=== PATIENT | male | born 1955 | race Caucasian/White ===

== ENCOUNTER 2019-03-02 07:58 | Inpatient (IN) | payer BC, MEDICARE ==
[~2019-03-02] VITALS: Ht 182.9 cm; Wt 99.3 kg
--- NOTE | 2019-03-02 08:31 | NUR ---
PT IS OOT ATTENDING THE COLLEGE FOR 10 DAYS POOR SLEEPING LAST NOC DIZZY THIS AM DROVE TO THE COLLEGE DIZZYNESS INCREASED AND HE FELL WHEN HE GOT OUT OF THE CAR RE WEAKNESS PT AO4 AT THIS TIME COMPLETE EROM
[2019-03-02 08:58] LABS: BASOPHILS % (AUTO) 0 % (0-1); EOSINOPHILS # (AUTO) 0.11 x10^3/uL (0-0.4); EOSINOPHILS % (AUTO) 2 % (1-7); LYMPHOCYTES # (AUTO) 1.15 x10^3/uL (1-3.4); LYMPHOCYTES % (AUTO) 17 % (22-44); MD NO; MEAN CORPUSCULAR HEMOGLOBIN 31.8 pg (27.5-34.5); MEAN CORPUSCULAR HGB CONC 33.6 g/dL (33.2-36.2); MEAN CORPUSCULAR VOLUME 94.7 fL (81-97); MEAN PLATELET VOLUME 8.4 fL (7.4-10.4); MONOCYTES # (AUTO) 0.48 x10^3/uL (0.2-0.8); MONOCYTES % (AUTO) 7 % (2-9); NEUTROPHILS % (AUTO) 75 % (42-75); PLATELET COUNT 294 x10^3/uL (130-400); RED BLOOD COUNT 4.04 x10^6/uL (4.38-5.82)
[2019-03-02] MEDS ORDERED: NITROGLYCERIN SINGLE TAB 0.4 MG SL PRN (09:00)
[2019-03-02] MEDS ORDERED: SODIUM CHLORIDE FLUSH 10ML SYR IVF ONE (09:00)
[2019-03-02] MEDS ORDERED: MORPHINE SULFATE 4 MG/ML, 1ML IVPush PRN (09:00)
[2019-03-02] MEDS ORDERED: MECLIZINE CHEWABLE 25 MG TAB PO ONE (09:00)
[2019-03-02] MEDS ORDERED: ASPIRIN 325 MG TABLET PO ONE (09:00)
[2019-03-02 09:08] LABS: INTERNATIONAL NORMALIZED RATIO 1.32 (0.93-1.1); PROTHROMBIN TIME 13.7 Seconds (9.6-11.5)
[2019-03-02 09:10] LABS: ALANINE AMINOTRANSFERASE 77 U/L (12-78); ALBUMIN 4.1 g/dL (3.4-5.0); ANION GAP 12 mmol/L (5-15); CHLORIDE 100 mmol/L (98-107); CREATININE 1.06 mg/dL (0.7-1.3)
[2019-03-02 09:15] LABS: ALKALINE PHOSPHATASE 99 U/L (45-117); BILIRUBIN,TOTAL 0.5 mg/dL (0.2-1.0); TOTAL PROTEIN 8.2 g/dL (6.4-8.2); TROPONIN I < 0.015 ng/mL (0.000-0.045)
[2019-03-02 09:22] LABS: CALCIUM 5.5 mg/dL (8.5-10.1)
[2019-03-02] MEDS ORDERED: ASPIRIN 325 MG TABLET ONE (09:23)
[2019-03-02] MEDS ORDERED: MECLIZINE CHEWABLE 25 MG TAB ONE (09:24)
[2019-03-02] MEDS ORDERED: CALCIUM GLUCONATE 9.2 MEQ in SODIUM CHLORIDE 0.9% 100 ML IV ONE (10:00)
--- NOTE | 2019-03-02 10:52 | NUR ---
REPORT FROM CASSI IBARRA, ASSUME CARE OF PT AT THIS TIME.
[2019-03-02] MEDS ORDERED: HYDR-3240 PO (11:18)
[2019-03-02] MEDS ORDERED: DIAZ5TAB4 PO (11:18)
[2019-03-02] MEDS ORDERED: CLON-275 PO (11:18)
[2019-03-02] MEDS ORDERED: CARV12.52 PO (11:18)
[2019-03-02] MEDS ORDERED: ATOR40TA78 PO (11:18)
[2019-03-02] MEDS ORDERED: LEVO50TA5 PO (11:18)
[2019-03-02] MEDS ORDERED: OMEP-110 PO (11:18)
[2019-03-02] MEDS ORDERED: HYDR12.517 PO (11:18)
[2019-03-02] MEDS ORDERED: LOSA50TA14 PO (11:18)
[2019-03-02] MEDS ORDERED: FURO-92 PO (11:18)
[2019-03-02] MEDS ORDERED: GABA300C10 PO (11:18)
--- NOTE | 2019-03-02 11:40 | NUR ---
PT UPDATED ON POC, REPOSITIONED ON SUKHWINDER. PT STATES HE'S CARRYING A LARGE AMOUNT OF MONEY-SECURITY CALLED TO LOCK UP VALUABLES.
[2019-03-02] MEDS ORDERED: POTASSIUM CHLORIDE 40 MEQ in SODIUM CHLORIDE 0.9% 500 ML IV ONE ×2 (13:00→19:00)
--- NOTE | 2019-03-02 13:14 | NUR ---
ATTEMPT TO CALL REPORT, RN UNAVAILABLE BUT WILL CALL BACK.
--- NOTE | 2019-03-02 13:21 | NUR ---
REPORT TO JANEL IBARRA, PT READY FOR TRANSPORT.
[2019-03-02 14:01] VITALS: BP 136/80
[2019-03-02] MEDS ORDERED: PROMETHAZINE 25 MG/ML, 1ML IM PRN (14:30)
[2019-03-02] MEDS ORDERED: ONDANSETRON ODT 4 MG PO PRN (14:30)
[2019-03-02] MEDS ORDERED: hydrALAzine 20 MG/ML, 1ML IVPush PRN (14:30)
[2019-03-02] MEDS ORDERED: POLYETHYLENE GLYCOL 17 GM PACKET PO PRN (14:30)
[2019-03-02] MEDS ORDERED: MAGNESIUM SULFATE PMX 2GM/50ML 50 ML IV ONE ×2 (14:30)
[2019-03-02] MEDS ORDERED: DOCUSATE 100 MG CAPSULE PO PRN (14:30)
[2019-03-02] MEDS ORDERED: morphine SULFATE 10 MG/ML, 1ML IVPush PRN (14:30)
[2019-03-02] MEDS ORDERED: ACETAMINOPHEN 325 MG TABLET PO PRN (14:30)
[2019-03-02] MEDS ORDERED: ONDANSETRON 2MG/ML, 2ML IVPush PRN (14:30)
[2019-03-02] MEDS ORDERED: BISACODYL 10 MG SUPP PR PRN (14:30)
[2019-03-02] MEDS ORDERED: CALCIUM GLUCONATE 4.6 MEQ in SODIUM CHLORIDE 0.9% 50 ML IV ONE (15:00)
[2019-03-02 15:17] LABS: FREE T4 (FREE THYROXINE) 1.54 ng/dL (0.76-1.46); THYROID STIMULATING HORMONE 1.5 mIU/L (0.358-3.740)
[2019-03-02] MEDS ORDERED: MAGNESIUM SULFATE PMX 4GM/100M 100 ML IVPB ONE (15:30)
[2019-03-02] MEDS ORDERED: TEMPLATE NON-FORMULARY MED. (Clonidine Hcl** (Clonidine Hcl Er**) 0.1 MG) PO SCH (16:00)
[2019-03-02] MEDS ORDERED: GABAPENTIN 300 MG CAPSULE PO SCH (16:00)
[2019-03-02] MEDS: HEPARIN 5,000 UNITS/ML, 1ML SQ SCH (17:50)
[2019-03-02] MEDS: CALCIUM CARBONATE 500 MG TABLET PO SCH ×2 (17:50→22:08)
[2019-03-02] MEDS: OMEPRAZOLE 20 MG CAPSULE.DR PO SCH (17:50)
[2019-03-02] MEDS: OXYcodone IR 5MG TABLET PO PRN ×2 (17:55→22:09)
[2019-03-02] MEDS: SODIUM CHLORIDE 0.9% 1,000 ML IV SCH (18:02)
[2019-03-02 20:00] VITALS: BP 151/78
[2019-03-02 20:10] LABS: ANION GAP 10 mmol/L (5-15); CHLORIDE 106 mmol/L (98-107); CREATININE 1.07 mg/dL (0.7-1.3)
[2019-03-02 20:21] LABS: CALCIUM 5.2 mg/dL (8.5-10.1)
[2019-03-02] MEDS ORDERED: ATORVASTATIN 40 MG TABLET PO SCH (21:00)
[2019-03-02 21:25] LABS: MICROSCOPIC NOT IND
[2019-03-02 21:27] LABS: CULTURE INDICATED? NO
[2019-03-02] MEDS: GABAPENTIN 300 MG CAPSULE PO SCH (22:07)
[2019-03-02] MEDS: CARVEDILOL 6.25 MG TABLET PO SCH (22:08)
[2019-03-03] MEDS: HEPARIN 5,000 UNITS/ML, 1ML SQ SCH ×2 (01:46→11:11)
[2019-03-03 02:00] VITALS: BP 138/74
[2019-03-03 02:00] LABS: BASOPHILS # (AUTO) 0.02 x10^3/uL (0-0.1); BASOPHILS % (AUTO) 1 % (0-1); EOSINOPHILS # (AUTO) 0.11 x10^3/uL (0-0.4); EOSINOPHILS % (AUTO) 2 % (1-7); LYMPHOCYTES # (AUTO) 1.38 x10^3/uL (1-3.4); LYMPHOCYTES % (AUTO) 29 % (22-44); MD NO; MEAN CORPUSCULAR HEMOGLOBIN 32.1 pg (27.5-34.5); MEAN CORPUSCULAR HGB CONC 33.5 g/dL (33.2-36.2); MEAN CORPUSCULAR VOLUME 95.8 fL (81-97); MEAN PLATELET VOLUME 8.4 fL (7.4-10.4); MONOCYTES # (AUTO) 0.45 x10^3/uL (0.2-0.8); MONOCYTES % (AUTO) 9 % (2-9); NEUTROPHILS # (AUTO) 2.85 x10^3/uL (1.8-6.8); NEUTROPHILS % (AUTO) 59 % (42-75); PLATELET COUNT 273 x10^3/uL (130-400); RED BLOOD COUNT 3.58 x10^6/uL (4.38-5.82); RED CELL DISTRIBUTION WIDTH 13.3 % (9.4-14.8)
[2019-03-03 02:08] LABS: ALANINE AMINOTRANSFERASE 61 U/L (12-78); ALBUMIN 3.4 g/dL (3.4-5.0); ANION GAP 12 mmol/L (5-15); CHLORIDE 107 mmol/L (98-107); CREATININE 0.89 mg/dL (0.7-1.3)
[2019-03-03 02:10] LABS: ALKALINE PHOSPHATASE 88 U/L (45-117); BILIRUBIN,TOTAL 0.6 mg/dL (0.2-1.0); TOTAL PROTEIN 6.9 g/dL (6.4-8.2)
[2019-03-03 02:19] LABS: CALCIUM 5.5 mg/dL (8.5-10.1)
[2019-03-03] MEDS ORDERED: MAGNESIUM SULFATE PMX 2GM/50ML 50 ML IV ONE (04:30)
[2019-03-03] MEDS ORDERED: LEVOTHYROXINE 50 MCG TABLET PO SCH (06:00)
[2019-03-03 07:15] LABS: ALANINE AMINOTRANSFERASE 61 U/L (12-78); ALBUMIN 3.3 g/dL (3.4-5.0); ANION GAP 12 mmol/L (5-15); CHLORIDE 106 mmol/L (98-107); CREATININE 0.74 mg/dL (0.7-1.3)
[2019-03-03 07:17] LABS: CALCIUM 5.6 mg/dL (8.5-10.1)
[2019-03-03 07:19] LABS: ALKALINE PHOSPHATASE 91 U/L (45-117); BILIRUBIN,TOTAL 0.8 mg/dL (0.2-1.0); CHOLESTEROL, TOTAL 115 mg/dL (140-239); HDL CHOL % 25 % (26-37); HDL CHOLESTEROL (DIRECT) 29 mg/dL (40-60); LDL CHOLESTEROL,CALCULATED 70 mg/dL (54-169); LDL/HDL RATIO 2.4 (0.5-3.0); TRIGLYCERIDES 81 mg/dL (50-200); VLDL CHOLESTEROL 16 mg/dL (0-25)
[2019-03-03 07:22] VITALS: BP 132/70
[2019-03-03] MEDS: OMEPRAZOLE 20 MG CAPSULE.DR PO SCH ×2 (07:38→16:36)
[2019-03-03] MEDS ORDERED: LOSARTAN 50MG TABLET PO SCH (09:00)
[2019-03-03] MEDS ORDERED: DIAZEPAM 5 MG TABLET PO SCH (09:00)
[2019-03-03] MEDS: CALCIUM CARBONATE 500 MG TABLET PO SCH (09:18)
[2019-03-03] MEDS: GABAPENTIN 300 MG CAPSULE PO SCH (09:18)
[2019-03-03] MEDS: CARVEDILOL 6.25 MG TABLET PO SCH (09:18)
[2019-03-03] MEDS ORDERED: POTASSIUM CHLORIDE 40 MEQ in SODIUM CHLORIDE 0.9% 500 ML IV ONE (10:00)
[2019-03-03] MEDS ORDERED: ERGOCALCIFEROL 50,000 UNIT CAPSULE PO SCH (10:00)
[2019-03-03] MEDS ORDERED: CALCIUM GLUCONATE 9.2 MEQ in SODIUM CHLORIDE 0.9% 100 ML IV ONE (10:00)
[2019-03-03] MEDS: OXYcodone IR 5MG TABLET PO PRN (11:07)
[2019-03-03] MEDS: POTASSIUM CHLORIDE 20 MEQ TAB.ER.PRT PO SCH ×2 (11:08→16:36)
[2019-03-03] MEDS: SODIUM CHLORIDE 0.9% 1,000 ML IV SCH (13:00)
[2019-03-03 14:23] VITALS: BP 129/73
[2019-03-03 15:03] LABS: ANION GAP 8 mmol/L (5-15); CALCIUM 6.2 mg/dL (8.5-10.1); CHLORIDE 110 mmol/L (98-107)
[2019-03-03] MEDS ORDERED: ERGO500017 PO (15:55)
[2019-03-03] MEDS ORDERED: POTA20TA91 PO (15:55)
[2019-03-03] MEDS ORDERED: CALC-666 PO (15:55)
[2019-03-03] MEDS ORDERED: CALCIUM CARBONATE 500 MG TABLET PO SCH (16:00)
== END 2019-03-03 18:22 | disposition home or self-care (01) | DRG 641 ==
LOC: ED 10:35 → EDIP 11:36 → 4EST 13:36
PROVIDERS: ADMIT Internal Medicine; ATTEND Internal Medicine
DX: E83.51 Hypocalcemia (principal); D64.9 Anemia, unspecified; E03.9 Hypothyroidism, unspecified; E78.5 Hyperlipidemia, unspecified; E83.42 Hypomagnesemia; E86.0 Dehydration; E87.6 Hypokalemia; G89.29 Other chronic pain; I10 Essential (primary) hypertension; K21.9 Gastro-esophageal reflux disease without esophagitis; Z87.891 Personal history of nicotine dependence; Z88.8 Allergy status to other drugs, medicaments and biological substances
CPT/HCPCS: 36415; 71045; 80048; 80053; 80061; 81003; 82306; 82330; 82607; 83036; 83690; 83735; 83970; 84100; 84439; 84443; 84484; 85025; 85610; 85730; 93005; 93306; 99291; G0378; J0610; J1644; J3480; J3475; J7030; J7040